=== PATIENT | female | born 1960 | race Caucasian/White ===

== ENCOUNTER → 2020-06-25 14:24 | Outpatient (CLI) | payer OTHER, SELFPAY ==
--- NOTE | 2020-06-25 14:29 | US_ITS ---
STUDY: RENAL ULTRASOUND - COMPLETE REASON FOR EXAM: Female, 60 years old. Gross hematuria. TECHNIQUE: Ultrasound evaluation of the kidneys was performed with real-time and static cabral-scale imaging. COMPARISON: None. FINDINGS: RIGHT KIDNEY: Normal location of the right kidney, which is normal in size. The right kidney measures 11.4 cm x 5.4 cm x 4.6 cm. There is a normal cortex of the right kidney. The renal cortex measures 1.3 cm. There is no right renal mass or cyst. There are no right renal calculi. There is an extra-renal pelvis of the right kidney. There is no distention of the renal calyces. DISTAL RIGHT URETER: There is non-visualization of the distal right ureter. There is no demonstrated right ureterovesical junction calculus. There is no demonstrated right ureteral jet. LEFT KIDNEY: Normal location of the left kidney, which is normal in size. The left kidney measures 11 cm x 4.7 cm x 5.5 cm. There is a normal cortex of the left kidney. The renal cortex measures 2.2 cm. There is no left renal mass or cyst. Multiple tiny intrarenal calculi are seen. The largest measures 8 mm x 4 mm x 5 mm. There is no left hydronephrosis. DISTAL LEFT URETER: There is non-visualization of the distal left ureter. There is no demonstrated left ureterovesical junction calculus. There is no demonstrated left ureteral jet. BLADDER: The urinary bladder is not adequately distended for assessment. US/Kidney and Bladder IMPRESSION: Tiny left intrarenal calculi. Electronically Signed: Devon Harris MD at 15:21 EDT , Service support ,
== END ==
PROVIDERS: PCP Family Medicine; Referring Provider Family Medicine; Visit Provider Family Medicine
DX: R31.9 Hematuria, unspecified (principal)
CPT/HCPCS: 76770

== ENCOUNTER → 2020-07-07 16:27 | Outpatient (CLI) | payer OTHER, SELFPAY ==
--- NOTE | 2020-07-07 16:45 | CT_ITS ---
HISTORY: GROSS HEMATURIA EXAMINATION: CT Abdomen And Pelvis WO/W Contrast Injection TECHNIQUE: Helically acquired images were obtained of the abdomen and pelvis both before and after IV contrast. A radiation dose optimization technique was used for this scan. IV Contrast dosage and agent: 100mL Isovue-300 Oral contrast: None. COMPARISON: 11/17/15 FINDINGS: LOWER CHEST: Lung bases are clear. No cardiomegaly or pericardial effusion. LIVER: Homogeneous. No focal mass. GALLBLADDER AND BILIARY TREE: Calcified gallstone. Gallbladder contracted. No intra- or extrahepatic biliary ductal dilation. PANCREAS: No focal cystic or solid mass. SPLEEN: Normal size without focal cystic or solid mass. ADRENAL GLANDS: No nodules. KIDNEYS AND URETERS: Nonobstructing left renal calculi. Left hydroureteronephrosis with 3 mm calculus in the distal right ureter near the UVJ. PERITONEUM: No ascites or free air. BOWEL: Normal appendix. No stomach or bowel distension. No focal inflammatory change. LYMPH NODES: No enlarged mesenteric or retroperitoneal lymph nodes. VESSELS: Aorta is non-dilated. URINARY BLADDER: Unremarkable. REPRODUCTIVE ORGANS: No pelvic masses. Prominent pelvic veins. ABDOMINAL WALL: No discrete abdominal or pelvic wall hernia. BONES: No acute or aggressive abnormality. CT/CT Abd/Pelvis W/WO Contrast IMPRESSION: Partially obstructing 3 mm calculus distal right ureter. Nonobstructing left nephrolithiasis. Findings suggesting pelvic congestion syndrome. Individualized dose optimization techniques were used for this CT. at 1820 Reported and signed by: Toi Lewis MD Electronically Signed: Toi Lewis MD at 18:18 EDT Tel , Service support ,
[2020-07-07 17:11] LABS: CREATININE FINGERSTICK 1.1 mg/dL (0.55-1.02)
== END ==
PROVIDERS: PCP Family Medicine; Visit Provider Nurse Practitioner Adult Health
DX: R31.0 Gross hematuria (principal)
CPT/HCPCS: 74178; Q9967

== ENCOUNTER 2020-07-10 10:23 | Day surgery (SDC) | payer OTHER, SELFPAY ==
[2020-07-10 10:52] VITALS: BP 91/51; PULSE 65; RESP 16; TEMP 37.1; O2SAT 97; BMI 21.5
[2020-07-10] MEDS: Lactated Ringers 1,000 ML 100 ML IV (10:59)
[2020-07-10] MEDS: Cefazolin 2 GM in 0.9% Normal Saline 100 ML IV (12:44)
--- NOTE | 2020-07-10 13:24 | PCM.HP.STD ---
HPI - General HPI Narrative With obstructing stone in distal right ureter and she been having a lot of frequency urgency and pain in the bladderGELA AKBAR, is a 60 F who presents [facility] Medical History (Updated 07/10/20 @ 13:[address] Tano Owen MD) Hiatal hernia History of alcohol use Kidney stones Non-smoker Post-menopausal Wears contact lenses Home Medications estradiol [Climara] 1 patch TRANSDERMAL RUTLEDGE 07/09/20 [History Last Taken Unknown] progesterone micronized 200 mg PO DAILY 07/09/20 [History Last Taken Unknown] ciprofloxacin HCl [Cipro] 500 mg PO BID #6 tab 07/10/20 [Rx Last Taken Unknown] ibuprofen 600 mg PO Q6H PRN #20 tab 07/10/20 [Rx Last Taken Unknown] phenazopyridine [Pyridium] 100 mg PO TID PRN #10 tab 07/10/20 [Rx Last Taken Unknown] Allergy/AdvReac Type Severity Reaction Status Date / Time No Known Allergies Allergy Verified 07/10/20 10:52 Surgical History (Updated 07/09/20 @ 10:50 by Citlalli Watt) History of History of esophagogastroduodenoscopy (EGD) Hx of colonoscopy Hx of hernia repair Social History Smoking Status: Never smoker Vital Signs Vital Signs Vital Signs: 07/10/20 10:52 Temperature 98.7 F Temperature Source Temporal Pulse Rate 65 Respiratory Rate 16 Respiratory Pattern Normal Blood Pressure 91/51 L Blood Pressure Mean 64 Blood Pressure Source Monitor Blood Pressure Position Semi-Fowlers Blood Pressure Location Right Arm Pulse Ox 97 Oxygen Delivery Method Room Air Physical Exam Const alert and oriented x3 General Appearance: cooperative HEENT normocephalic, head/scalp atraumatic, EAC's normal and TM's normal bilaterally Eyes PERRL and EOMs intact bilaterally Pupil: sluggish Neck no lymphadenopathy, supple and no JVD General: trachea midline Lymph Lymphatic: no lymphadenopathy noted, lymphedema and lymphadenopathy Resp normal respiratory effort, normal air movement and clear to auscultation bilaterally Cardio regular rate, regular rhythm and peripheral pulses 2+ throughout GI soft to palpation, non-tender and non-distended Extremity normal capillary refill and no clubbing, cyanosis or edema General Extremity: no tenderness to palpation of joints or extremities Skin no rashes or lesions noted General Skin Exam: turgor normal Lesions: no lesions Rashes: no rashes Neuro CN's II-XII intact bilaterally Speech: speech normal Motor Exam: strength 5/5 throughout; Negative for general weakness Psych thought process normal, cooperative and affect normal Appearance: appropriate Assessment & Plan Assessment/Plan (1) Kidney stones: PLAN: Plan to proceed with right ureteroscopy laser of stone and stent placement.
--- NOTE | 2020-07-10 13:24 | PCM.DC ---
Discharge Instructions Diet Discharge Diet: No restrictions Activity Discharge Activity: May not drive while taking narcotic pain medications. (for 3 days.) May shower in (days): 1 Dressing / Incision Call your doctor if your incision/area has: Continuous Slow Oozing, Increased Pain/ Swelling, Increased Redness and Foul Smelling Discharge Call your doctor if you observe: Fever of 101 or Higher, Numbness or Tingling, Shortness of breath, Dizziness, Calf discomfort and Uncontrolled pain Cleanse incision/area with: Keep Dressing Clean & Dry Follow Up Care Please Follow Up With: Tano Owen MD When: Call [phone] for an appointment Test Results: Test results from this visit will be discussed in further detail at your follow-up appointment, if applicable. Discharge Plan Admission Primary Reason for Your Visit: Laser stone in Ureter. Attending Provider: Tano Owen Primary Care Provider: Isaac Eaton Instructions Patient Instructions: Treating Kidney Stones: Ureteroscopic Stone Removal Discharge Orders/Prescriptions Prescriptions: New ciprofloxacin HCl [Cipro] 500 mg tablet 500 mg PO BID Qty: 6 RF: 0 ibuprofen 600 mg tablet 600 mg PO Q6H PRN (Reason: pain) Qty: 20 RF: 0 phenazopyridine [Pyridium] 100 mg tablet 100 mg PO TID PRN (Reason: pain) Qty: 10 RF: 0 No Action estradiol [Climara] 0.025 mg/24 hr Patch Weekly 1 patch TRANSDERMAL RUTLEDGE RF: 0 progesterone micronized 100 mg Capsule 200 mg PO DAILY RF: 0 Referrals / Follow Up: Isaac Eaton MD [Primary Care Provider] - Tano Owen MD [STAFF PHYSICIAN] - Disposition Discharge Orders: Discharge Patient (Routine); Ordered 07/10/20 Ordered By: Dr. Tano Owen
--- NOTE | 2020-07-10 13:25 | PCM.OPRPT ---
Problems Associated Problem List Diagnoses (1) Kidney stones: Report of Operation Date of Procedure: 07/10/20 Pre-Operative Diagnosis: Right ureteral calculi Post-Operative Diagnosis: Same Surgery/Procedure Performed:: Cystoscopy, right retrograde pyelogram, balloon dilation of the right ureter, ureteroscopy laser lithotripsy of stone and right stent Description of Surgical Findings:: This is a patient who presents to the hospital for treatment for an obstructing distal ureter calculi. I discussed with the patient how the surgery would be performed and we reviewed the risks and benefits of the surgery. The risk and benefits include the risk of failure to remove the stone completely and that the patient may need multiple procedures. We discussed the risk of an infection, the risk of bleeding. We discussed the very rare risk of serious complicated injury to the ureter. The patient understands that if the stone is not able to be removed safely that we may abort the procedure and place a stent. After full discussion and all questions address with the patient the consent form was signed the side was marked appropriately and the patient was taken back to the operating room for the procedure. The patient was taken back to the operating room. After induction of anesthesia by the anesthesiology team the patient was placed in dorsolithotomy position. The genitals were prepped and draped in usual sterile fashion. I went into the bladder with a 21 [place] rigid cystourethroscope through the urethra. Upon entering the bladder I inspected the trigone the left and right ureteral orifice and the bladder itself. I then cannulated the right ureteral orifice and advanced a 0.038 Glidewire up into the kidney. Then over the Glidewire I advanced a 5 Fr Ureteral catheter and performed a retrograde pyelogram with about 10cc of contrast, to delineate the anatomy and identify the stone location. Then a ureteral balloon dilator was advanced over the wire and the distal ureter was balloon dilated with a 12 Fr x 5cm balloon dilator. After 3 minutes of dilating the ureter the balloon was backloaded off the 0.038 glidewire then the safety wire was left in place. I then placed a second 0.038 Guidewire as a working wire and over the working 0.038 guidewire I went in with the veronica rigide 7.5fr ureteroscope. I was able to go inside with the 7.5Fr veronica rigid utereroscope and I pulled out the working guidewire and then through the 7.5 fr simirigid ureteroscope I engage the stone in the distal ureter with laser lithotripsy using a 270miron laser fiber with energy setting of 6 Hertz and 0.6 J until the stone was lasered into tiny little pieces that should pass on their own. A retrograde pyelogram was performed with 10cc of contrast and no extravasation of contrast or perforation was identified in the ureter there was some mild irritation of the ureter where the stone was located. I then backed out of the ureter left the wire in place and then over the 0.038 guidewire I placed a double coiled pigtail ureteral stent. The ureteral stent was advanced over the 0.038 guidewire under direct fluoroscopic guidance and direct cystoscopic visual guidance, once the stent was in good position I pulled the wire and the stent coiled in the kidney and bladder in good position. I then drained the patient's bladder and the cystoscope was removed and the patient was taken back to the recovery room in good position. The patient was given discharge instructions to call the office for instructions on when to come to the office to have the stent removed. Surgeon: arturo Type of Anesthesia: General Drains: stent right with string Admit VTE Documentation VTE Present on Admission: No VTE Mechan Device Prophylaxis: SCD's
[2020-07-10 13:42] VITALS: BP 118/77; BP 91/51; PULSE 71; RESP 16; TEMP 36.1; O2SAT 98
[2020-07-10 13:45] VITALS: BP 121/78; BP 91/51; PULSE 70; RESP 16; O2SAT 100
[2020-07-10 14:00] VITALS: BP 129/83; BP 91/51; PULSE 63; RESP 16; O2SAT 100
[2020-07-10 14:06] VITALS: BP 129/87; BP 91/51; PULSE 58; RESP 16; TEMP 36.2; O2SAT 100
[2020-07-10] MEDS: Ketorolac 15 MG/ML Vial IV (14:13)
[2020-07-10 15:25] VITALS: BP 125/75; BP 91/51; PULSE 66; RESP 16; TEMP 36.6; O2SAT 100
== END 2020-07-10 15:31 ==
LOC: SDC 10:23 → AC 10:24
PROVIDERS: PCP Family Medicine; Referring Provider Urology; Visit Provider Urology
PROC: 0TJ98ZZ Inspection of Ureter, Via Natural or Artificial Opening Endoscopic (ICD-10-PCS; CPT 52352; principal; 2020-07-10 11:45)
DX: N20.2 Calculus of kidney with calculus of ureter (principal); K44.9 Diaphragmatic hernia without obstruction or gangrene; Z78.0 Asymptomatic menopausal state; Z87.442 Personal history of urinary calculi
CPT/HCPCS: 00918; 52356; 76000; J7120; C1769; C2617; J2405

== ENCOUNTER → 2023-04-19 | Outpatient (CLI) | payer OTHER, SELFPAY ==
[2023-04-19 12:40] LABS: Absolute Lymphocyte Count 0.96 X10^3/uL (0.83-4.51); Absolute Neutrophil Count 2.6 X10^3/uL (2.0-7.7); Basophil# 0.09 X10^3/uL; Basophil% 2.1 % (0-1); Eosinophil# 0.21 X10^3/uL; Hemoglobin 14.8 g/dL (12.0-15.0); Lymphocyte # 0.96 X10^3/ul (0.83-4.51); Lymphocyte % 22.7 % (19-41); Mean Corp Hgb Conc 33.6 g/dL (32-36); Mean Corpuscular Volume 92.1 fL (81-99); Mean Platelet Vol. 10.2 fl (6.2-12.0); Monocyte# 0.37 X10^3/uL; Monocyte% 8.7 % (0-10); NRBC Flagged by Analyzer 0 % (0-5); Neutrophil # 2.59 X10^3/uL (2.7-7.7); Neutrophil % 61.3 % (47-70); Platelet Count 344 K/mm3 (150-450); RBC Distribution Width CV 11.9 % (11.6-14.6); RBC Distribution Width SD 40.1 fl (35.1-43.9); Red Blood Count 4.78 M/mm3 (4.2-5.4); White Blood Count 4.2 K/mm3 (4.4-11.0)
[2023-04-19 13:10] LABS: Vitamin B12 483 pg/mL (211-911); Vitamin D,25 Hydroxy 51.8 ng/mL
[2023-04-19 13:34] LABS: ALB/GLOB Ratio 1.1 RATIO (0.9-2.4); AST(SGOT) 19 U/L (15-37); Alanine Aminotransfer ALT/SGPT 22 U/L (13-56); Alkaline Phosphatase 60 U/L (45-117); Anion Gap 3 (5-15); BUN 15 mg/dL (7-18); BUN/Creat Ratio 21.1 RATIO (10-20); Calcium,Total 9.7 mg/dL (8.5-10.1); Chloride 107 mmol/L (98-107); Cholesterol 218 mg/dL (200); Creatinine, Serum 0.71 mg/dL (0.55-1.02); EST Glomerular Filtration Rate 88 mL/min (>60); Est Glom Filt Rate - Afr Amer 106 mL/min (>60); Globulin 3.6 g/dL (2.2-4.2); Glucose 110 mg/dL (74-106); High Density Lipoprotein 79 mg/dL; Potassium 4.6 mmol/L (3.5-5.1); Prolactin 13.7 ng/mL; Protein, Total 7.6 g/dL (6.4-8.2); Sodium Level 140 mmol/L (136-145); Thyroid Stim Hormone (TSH) 1.44 uIU/mL (0.358-3.74); Triglycerides 57 mg/dL; Very Low Density Lipoprotein 11 mg/dL (5-40)
[2023-04-21 08:12] LABS: Anti-Centromere B Ab <0.2 AI (0.0-0.9); Anti-Chromatin <0.2 AI (0.0-0.9); Anti-Jo <0.2 AI (0.0-0.9); Anti-Nuclear Antibody Test Positive (.); Anti-Scleroderma-70 AB <0.2 AI (0.0-0.9); Anti-dsDNA Ab 9 IU/mL (0-9); RNP Ab <0.2 AI (0.0-0.9); SJOGREN'S Anti-SS-A test < 0.2 AI (0.0-0.9); SJOGREN'S Anti-SS-B test < 0.2 AI (0.0-0.9); Smith Ab <0.2 AI (0.0-0.9)
== END | disposition home or self-care (01) ==
LOC: BIMLAB 09:17
PROVIDERS: PCP Internal Medicine; Referring Provider Internal Medicine; Visit Provider Internal Medicine
DX: D35.2 Benign neoplasm of pituitary gland (principal); R41.3 Other amnesia; R53.83 Other fatigue; Z13.6 Encounter for screening for cardiovascular disorders
CPT/HCPCS: 36415; 80053; 80061; 82306; 82607; 84146; 84443; 85025; 86038; 86225; 86235

== ENCOUNTER → 2023-05-23 | Outpatient (CLI) | payer OTHER, SELFPAY ==
--- NOTE | 2023-05-23 08:05 | ECHOD_ITS ---
Reason For Study: MITRAL VALVE PROLAPSE Procedure This was a 2D Doppler, Color Flow transthoracic echocardiogram. Exam performed in department. Left Ventricle Normal LV size. Left ventricular systolic function is normal. The estimated ejection fraction is 60 %. No regional wall motion abnormalities noted. Right Ventricle Normal RV size. Normal systolic function. Atria Normal left atrium. Normal right atrium. Mitral Valve Bileaflet diffuse mitral valve thickening. Tricuspid Valve Normal tricuspid valve. Mild (1+) tricuspid valve insufficiency. Pulmonary artery systolic pressure is 22 mmHg. Aortic Valve Normal aortic valve. Trisinus/trileaflet aortic valve. Pulmonic Valve Normal pulmonic valve. Great Vessels Normal aortic root. The pulmonary artery is normal size. Inferior vena cava collapse with sniff. Pericardium/Pleural No pericardial effusion. MMode/2D Measurements & Calculations LVIDd: 4.6 cm IVSd: 0.72 cm LVOT diam: 2.0 cm LVIDs: 3.1 cm LVPWd: 0.86 cm LVOT area: 3.1 cm2 RVDd: 3.2 cm FS: 32.6 % Ao root diam: 3.1 cm LAV(MOD-bp): 39.2 ml LVAd ap4: 27.6 cm2 LAV(MOD-bp) Indexed: 23.3 ml/m2 LVLd ap4: 7.7 cm LAV(MOD-sp2): 48.7 ml EDV(MOD-sp4): 81.9 ml LAV(MOD-sp4): 32.0 ml EDV(sp4-el): 84.3 ml LVAs ap4: 14.9 cm2 LVLs ap4: 6.6 cm ESV(MOD-sp4): 29.8 ml ESV(sp4-el): 28.6 ml EF(MOD-sp4): 63.6 % EF(sp4-el): 66.1 % LVAd ap2: 26.4 cm2 SV(MOD-sp4): 52.1 ml SV(MOD-sp2): 51.4 ml LVLd ap2: 8.1 cm EDV(MOD-sp2): 73.7 ml EDV(sp2-el): 73.5 ml LVAs ap2: 13.0 cm2 LVLs ap2: 6.8 cm ESV(MOD-sp2): 22.3 ml ESV(sp2-el): 20.8 ml EF(MOD-sp2): 69.7 % SV(sp4-el): 55.7 ml LA dimension(2D): 3.0 cm LA A4 area: 15.1 cm2 RA A4 area: 10.9 cm2 TAPSE: 2.4 cm Time Measurements MV dec time: 0.21 sec Doppler Measurements & Calculations MV E max desean: 75.7 cm/sec Lat Peak E' Desean: 15.8 cm/sec Med Peak E' Desean: 10.5 cm/sec MV A max desean: 53.4 cm/sec E/E' lat: 4.8 E/E' med: 7.2 MV E/A: 1.4 Ao V2 max: 146.3 cm/sec LV V1 max: 113.0 cm/sec MV dec slope: 359.2 cm/sec2 Ao max P.6 mmHg LV V1 max P.1 mmHg Ao V2 mean: 98.6 cm/sec LV V1 mean P.8 mmHg Ao mean P.5 mmHg LV V1 mean: 77.4 cm/sec Ao V2 VTI: 31.2 cm LV V1 VTI: 27.2 cm AV (velocity ratio): 0.87 RUTHANN(I,D): 2.7 cm2 RUTHANN(V,D): 2.4 cm2 SV(LVOT): 84.8 ml PA V2 max: 79.5 cm/sec TR max desean: 213.9 cm/sec PA max PG (full): 0.53 mmHg TR max P.3 mmHg ECHO/Echo Complete Interpretation Summary Normal LV size. Left ventricular systolic function is normal. The estimated ejection fraction is 60 %. Bileaflet diffuse mitral valve thickening. Ordering Physician: Madelyn De Luna Referring Physician: Madelyn De Luna Performed By: Helen Young RDCS
--- NOTE | 2023-05-23 08:05 | AAAS_ITS ---
Reason For Study: STRONG FAM HX of AAA Aorta Measurements Aorta Doppler Measurements Proximal aorta measures1.87 X 1.73cm. in cross- Peak systolic flow velocities within the proximal sectional axis. aorta measure 74.8 cm/sec. Proximal aorta measures1.86cm. in longitudinal Peak systolic flow velocities within the mid aorta axis. measure 89.5 cm/sec. Mid aorta measures2.0 X 1.98cm. in cross-sectionalPeak systolic flow velocities within the distal axis. aorta measure 80.9 cm/sec. Mid aorta measures1.90cm. in longitudinal axis. Distal aorta measures1.50 X 1.61cm. in cross- sectional axis. Distal aorta measures1.52cm. in longitudinal axis. Left Iliac Artery Left iliac artery measures 1.00 X 1.07 cm. in the cross-sectional axis. Left iliac artery measures 0.88 cm. in the longitudinal axis. Peak systolic velocity in the left iliac artery measures 85.7 cm/sec. Right Iliac Artery Right iliac artery measures 1.00 X 0.98 cm. in the cross-sectional axis. Right iliac artery measures 0.97 cm. in the longitudinal axis. Peak systolic velocity in the right iliac artery measures 89.3 cm/sec. Procedure Aorta IVC Iliac vasculature or bypass grafts [id number]. Exam performed in department. VL/AAA Screening Interpretation Summary The dimensions of the intra-abdominal aorta appear normal, without evidence of aneurysmal dilatation. The iliac arteries are also normal in caliber bilaterally. The intr a-abdominal aorta and iliac arteries are patent, demonstrating normal, pulsatile arterial flow and no rmal peak systolic velocities. Ordering Physician: Madelyn De Luna Referring Physician: Madelyn De Luna Performed By: Aleyda Groves, RDCS, RVT
== END | disposition home or self-care (01) ==
PROVIDERS: PCP Internal Medicine; Referring Provider Internal Medicine; Visit Provider Internal Medicine
DX: Z86.79 Personal history of other diseases of the circulatory system (principal); R53.83 Other fatigue; N39.0 Urinary tract infection, site not specified; Z13.6 Encounter for screening for cardiovascular disorders
CPT/HCPCS: 76706; 87077; 87086; 87088; 87186; 93306

== ENCOUNTER → 2023-06-22 | Outpatient (CLI) | payer OTHER, SELFPAY | END | disposition home or self-care (01) | LOC: MTLAB 09:14 | PROVIDERS: PCP Internal Medicine | DX: R19.7 Diarrhea, unspecified (principal); R10.9 Unspecified abdominal pain | CPT/HCPCS: 82274; 83630; 83993; 87177; 87209; 87493; 87506 ==

== ENCOUNTER → 2023-07-18 | Outpatient (CLI) | payer OTHER, SELFPAY ==
[2023-07-18 11:29] LABS: Bacteria 0 SEEN /hpf (None Seen); Mucous, Urine 0 SEEN /hpf (<or=2+); Red Blood Cells-Urine 0 SEEN /hpf (0-5); Squamous Epithelial Cells - UA 0 SEEN /hpf (5-10)
[2023-07-18 12:22] LABS: Absolute Lymphocyte Count 0.71 X10^3/uL (0.83-4.51); Absolute Neutrophil Count 5.2 X10^3/uL (2.0-7.7); Basophil# 0.05 X10^3/uL; Basophil% 0.7 % (0-1); Eosinophil# 0.03 X10^3/uL; Eosinophils% 0.4 % (0-5); Hematocrit 40.5 % (37-47); Hemoglobin 13.7 g/dL (12.0-15.0); Lymphocyte # 0.71 X10^3/ul (0.83-4.51); Lymphocyte % 10.6 % (19-41); Mean Corp Hgb Conc 33.8 g/dL (32-36); Mean Corpuscular Hgb 30.4 pg (27.0-32.0); Mean Corpuscular Volume 89.8 fL (81-99); Monocyte% 10.4 % (0-10); NRBC Flagged by Analyzer 0 % (0-5); Neutrophil # 5.19 X10^3/uL (2.7-7.7); Neutrophil % 77.6 % (47-70); Platelet Count 213 K/mm3 (150-450); RBC Distribution Width CV 12.1 % (11.6-14.6); RBC Distribution Width SD 39.6 fl (35.1-43.9); Red Blood Count 4.51 M/mm3 (4.2-5.4); White Blood Count 6.7 K/mm3 (4.4-11.0)
[2023-07-18 12:26] LABS: Color, Urine Yellow (Yellow); Glucose, Dipstick Normal (Normal); Ketone-Dipstick 15 mg/dl (Negative); Leukocyte Esterase-Dipstick 25 /ul (Negative); Nitrite-Dipstick Negative (Negative); Occult Blood-Urine 50 /ul (Negative); Protein-Dipstick 30 mg/dl (Negative); Specific Gravity, Urine 1.025 (1.002-1.030); Urine Bilirubin Dipstick Negative (Negative); Urine Clarity Cloudy (Clear); Urine Urobilinogen 4 mg/dl (Normal)
[2023-07-18 12:39] LABS: Uric Acid Crystals Ur 1+ /hpf (<or=1+); White Blood Cells 0-5 SEEN /hpf (0-5)
[2023-07-18 12:49] LABS: AST(SGOT) 38 U/L (15-37); Alanine Aminotransfer ALT/SGPT 39 U/L (13-56); Albumin, Serum 3.6 g/dL (3.2-5.0); Alkaline Phosphatase 73 U/L (45-117); Anion Gap 5 (5-15); BUN 13 mg/dL (7-18); BUN/Creat Ratio 22.1 RATIO (10-20); CPK Total, Creatine Kinase 53 U/L (26-192); Calcium,Total 9.1 mg/dL (8.5-10.1); Chloride 102 mmol/L (98-107); Creatinine, Serum 0.59 mg/dL (0.55-1.02); EST Glomerular Filtration Rate 109 mL/min (>60); Est Glom Filt Rate - Afr Amer 132 mL/min (>60); Globulin 3.6 g/dL (2.2-4.2); Glucose 113 mg/dL (74-106); Potassium 4.7 mmol/L (3.5-5.1); Protein, Total 7.2 g/dL (6.4-8.2); Sodium Level 137 mmol/L (136-145)
[2023-07-19 15:08] LABS: Lyme Scn Total Ab w/Rflx Negative (Negative)
== END | disposition home or self-care (01) ==
LOC: BIMLAB 11:19
PROVIDERS: PCP Internal Medicine; Visit Provider Internal Medicine
DX: R53.83 Other fatigue (principal); R10.13 Epigastric pain; W57.XXXA Bitten or stung by nonvenomous insect and other nonvenomous arthropods, initial encounter; R39.89 Other symptoms and signs involving the genitourinary system
CPT/HCPCS: 36415; 80053; 81001; 82550; 85025; 86618

== ENCOUNTER → 2024-11-07 | Outpatient (CLI) | payer MEDICARE, OTHER, SELFPAY ==
[2024-11-07 10:52] LABS: Hematocrit 42.4 % (37-47); Hemoglobin 14.6 g/dL (12.0-15.0); Immature Granulocytes Count 0.010 X10^3/uL (0.0-0.0); Mean Corp Hgb Conc 34.4 g/dL (32-36); Mean Corpuscular Volume 89.1 fL (81-99); Mean Platelet Vol. 9.8 fl (6.2-12.0); NRBC Flagged by Analyzer 0 % (0-5); Platelet Count 331 K/mm3 (150-450); RBC Distribution Width CV 11.7 % (11.6-14.6); RBC Distribution Width SD 38.1 fl (35.1-43.9); Red Blood Count 4.76 M/mm3 (4.2-5.4); White Blood Count 4.6 K/mm3 (4.4-11.0)
[2024-11-07 12:05] LABS: AST(SGOT) 22 U/L (<=31); Alanine Aminotransfer ALT/SGPT 17 U/L (<=34); Albumin, Serum 4.4 g/dL (3.4-4.8); Alkaline Phosphatase 63 U/L (35-104); Anion Gap 10 (5-15); BUN 16 mg/dL (4-19); BUN/Creat Ratio 24.2 RATIO (10-20); Calcium,Total 9.5 mg/dL (7.6-11.0); Carbon Dioxide 27.8 mmol/L (21.0-32.0); Chloride 105 mmol/L (98-108); Cholesterol 219 mg/dL (<=200); Globulin 2.6 g/dL (2.2-4.2); Glucose 107 mg/dL (70-99); Low Density Lipoprotein Calc. 125 mg/dL; Potassium 4.5 mmol/L (3.3-5.1); Triglycerides 51 mg/dL; Very Low Density Lipoprotein 10 mg/dL (5-40); Vitamin D,25 Hydroxy 43.9 ng/mL (30-100); cholesterol:hdl ratio screen 2.61
== END | disposition home or self-care (01) ==
PROVIDERS: PCP Internal Medicine; Referring Provider Internal Medicine; Visit Provider Internal Medicine
DX: M25.50 Pain in unspecified joint (principal); L40.9 Psoriasis, unspecified; Z86.79 Personal history of other diseases of the circulatory system; Z13.6 Encounter for screening for cardiovascular disorders; E55.9 Vitamin D deficiency, unspecified
CPT/HCPCS: 36415; 80053; 80061; 82306; 85025